=== PATIENT | male | born 1980 | race Caucasian/White ===

== ENCOUNTER 2020-06-09 15:31 | Emergency (ER) | payer OTHER ==
[2020-06-09 15:38] VITALS: RESP 18; TEMP 98.3
[2020-06-09] MEDS ORDERED: LORazepam 2 MG/ML INJ IV STA ×2 (15:38→17:53)
[2020-06-09] MEDS ORDERED: SODIUM CHLORIDE 0.9% 500 ML 500 ML IV STA (15:38)
--- NOTE | 2020-06-09 15:43 | ED ---
General Adult HPI - General Chief complaint: Seizure Stated complaint: seizure Time Seen by Provider: 06/09/20 15:32 Source: patient, EMS, RN notes reviewed Mode of arrival: EMS Limitations: no limitations - History of Present Illness Initial comments: Patient is a pleasant 40-year-old male presenting to the emergency department telling possible seizure. Patient reportedly had abnormal behavior and seizure- like activity that was reported to EMS. EMS found patient to be confused that did improve. Patient was also tachycardic that has also improved. Patient does not recall the situation. Patient states he does have palpitations and mild discomfort in his chest at this time. Patient does frequently drink 10 or so beers per day, patient normally would've started drinking by now however today has not drank any. Patient admits he does feel shaky and states he gets like that when he has not had alcohol in a while. No headache. Patient no longer feels confused. - Related Data Home Medications Medication Instructions Recorded Confirmed No Known Home Medications 06/09/20 06/09/20 Allergies Allergy/AdvReac Type Severity Reaction Status Date / Time No Known Allergies Allergy Verified 06/09/20 17:01 Review of Systems ROS Statement: Those systems with pertinent positive or pertinent negative responses have been documented in the HPI. ROS Other: All systems not noted in ROS Statement are negative. Constitutional: Denies: fever Eyes: Denies: eye pain ENT: Denies: ear pain Respiratory: Denies: cough Cardiovascular: Reports: as per HPI, chest pain, palpitations Endocrine: Denies: fatigue Gastrointestinal: Denies: abdominal pain Genitourinary: Denies: dysuria Musculoskeletal: Denies: back pain Skin: Denies: rash Neurological: Reports: as per HPI. Denies: headache Past Medical History Past Medical History: No Reported History History of Any Multi-Drug Resistant Organisms: None Reported Additional Past Surgical History / Comment(s): vasectomy Past Psychological History: No Psychological Hx Reported Smoking Status: Current every day smoker Past Alcohol Use History: Daily Past Drug Use History: None Reported General Exam Limitations: no limitations General appearance: alert, in no apparent distress Head exam: Present: normocephalic Eye exam: Present: normal appearance, PERRL, EOMI ENT exam: Present: other (Tongue abrasion) Neck exam: Present: normal inspection. Absent: tenderness Respiratory exam: Present: normal lung sounds bilaterally Cardiovascular Exam: Present: tachycardia, normal heart sounds Expanded Peripheral pulses: 2+: Radial (R), Radial (L), Posterior Tibialis (R), Posterior Tibialis (L) GI/Abdominal exam: Present: soft. Absent: tenderness Extremities exam: Present: normal inspection. Absent: pedal edema, calf tenderness Back exam: Present: normal inspection Neurological exam: Present: alert, oriented X3, CN II-XII intact Expanded Neurological exam: Present: protecting the airway Patient oriented to: Present: person, place, time Speech: Present: fluid speech Motor strength exam: RUE: 5, LUE: 5, RLE: 5, LLE: 5 Eye Response: (4) open spontaneously Motor Response: (6) obeys commands Verbal Response: (5) oriented Psychiatric exam: Present: normal affect, normal mood Skin exam: Present: normal color Course Vital Signs 06/09/20 06/09/20 15:36 17:00 Temperature 98.3 F 98.3 F Pulse Rate 121 H 106 H Respiratory 18 18 Rate Blood Pressure 108/59 118/72 O2 Sat by Pulse 97 97 Oximetry EKG Findings - EKG Comments: EKG Findings:: Sinus tachycardia 105. MN 182. QRS 82. QT 344. QTC 454. Normal axis. Q waves in leads V1 and V2. No acute ST change. Medical Decision Making - Medical Decision Making Patient reevaluated and resting comfortably in bed. Patient still with mild tremor. Patient updated on results. Patient also updated on suspicion regarding alcohol withdrawal seizure. Patient agrees. Patient offered admissio n however refuses. Patient advised to decrease alcohol intake. Patient will be given referral forms. Patient states he does have a primary care physician out of town. - Lab Data Result diagrams: 06/09/20 15:44 06/09/20 15:44 Lab Results 06/09/20 06/09/20 06/09/20 Range/Units 15:44 15:44 15:44 WBC (3.8-10.6) k/uL RBC (4.30-5.90) m/uL Hgb (13.0-17.5) gm/dL Hct (39.0-53.0) % MCV (80.0-100.0) fL MCH (25.0-35.0) pg MCHC (31.0-37.0) g/dL RDW (11.5-15.5) % Plt Count (150-450) k/uL MPV Neutrophils % % Lymphocytes % % Monocytes % % Eosinophils % % Basophils % % Neutrophils # (1.3-7.7) k/uL Lymphocytes # (1.0-4.8) k/uL Monocytes # (0-1.0) k/uL Eosinophils # (0-0.7) k/uL Basophils # (0-0.2) k/uL D-Dimer 10.55 H (<0.60) mg/L FEU Sodium 138 (137-145) mmol/L Potassium 3.7 (3.5-5.1) mmol/L Chloride 100 (98-107) mmol/L Carbon Dioxide 24 (22-30) mmol/L Anion Gap 14 mmol/L BUN 8 L (9-20) mg/dL Creatinine 0.63 L (0.66-1.25) mg/dL Est GFR (CKD-EPI)AfAm >90 (>60 ml/min/1.73 sqM) Est GFR (CKD-EPI)NonAf >90 (>60 ml/min/1.73 sqM) Glucose 123 H (74-99) mg/dL POC Glucose (mg/dL) (75-99) mg/dL POC Glu [employer] Technician ID Calcium 9.5 (8.4-10.2) mg/dL Total Bilirubin 1.0 (0.2-1.3) mg/dL AST 70 H (17-59) U/L ALT 34 (4-49) U/L Alkaline Phosphatase 98 (38-126) U/L Troponin I <0.012 (0.000-0.034) ng/mL Total Protein 7.6 (6.3-8.2) g/dL Albumin 4.7 (3.5-5.0) g/dL Serum Alcohol <10 mg/dL Coronavirus (PCR) (Not Detectd) 06/09/20 06/09/20 06/09/20 Range/Units 15:44 16:02 16:03 WBC 9.0 (3.8-10.6) k/uL RBC 4.56 (4.30-5.90) m/uL Hgb 15.4 (13.0-17.5) gm/dL Hct 44.7 (39.0-53.0) % MCV 97.9 (80.0-100.0) fL MCH 33.7 (25.0-35.0) pg MCHC 34.4 (31.0-37.0) g/dL RDW 12.8 (11.5-15.5) % Plt Count 141 L (150-450) k/uL MPV 6.8 Neutrophils % 83 % Lymphocytes % 9 % Monocytes % 5 % Eosinophils % 1 % Basophils % 0 % Neutrophils # 7.5 (1.3-7.7) k/uL Lymphocytes # 0.8 L (1.0-4.8) k/uL Monocytes # 0.5 (0-1.0) k/uL Eosinophils # 0.1 (0-0.7) k/uL Basophils # 0.0 (0-0.2) k/uL D-Dimer (<0.60) mg/L FEU Sodium (137-145) mmol/L Potassium (3.5-5.1) mmol/L Chloride (98-107) mmol/L Carbon Dioxide (22-30) mmol/L Anion Gap mmol/L BUN (9-20) mg/dL Creatinine (0.66-1.25) mg/dL Est GFR (CKD-EPI)AfAm (>60 ml/min/1.73 sqM) Est GFR (CKD-EPI)NonAf (>60 ml/min/1.73 sqM) Glucose (74-99) mg/dL POC Glucose (mg/dL) 110 H (75-99) mg/dL POC Glu [employer] Technician ID Cassandra Live Calcium (8.4-10.2) mg/dL Total Bilirubin (0.2-1.3) mg/dL AST (17-59) U/L ALT (4-49) U/L Alkaline Phosphatase (38-126) U/L Troponin I (0.000-0.034) ng/mL Total Protein (6.3-8.2) g/dL Albumin (3.5-5.0) g/dL Serum Alcohol mg/dL Coronavirus (PCR) Not Detected (Not Detectd) - Radiology Data Radiology results: report reviewed (CT chest negative for PE. Aorta without dissection or aneurysmal changes. Computed tomography scan of the brain shows no acute hemorrhage or shift. Possible white matter demyelinization.) Disposition Clinical Impression: Alcohol withdrawal seizure Disposition: HOME SELF-CARE Condition: Stable Instructions (If sedation given, give patient instructions): New-Onset Seizure in Adults (ED), Abuse of Alcohol (ED) Additional Instructions: Decrease alcohol use. Follow-up with alcohol counseling including alcohol anonymous or [place] or others, list provided. Return for recurrent s eizures, weakness or confusion, worsening symptoms or other concerns. Please do follow-up with primary care physician in the next day or 2 for recheck and have them review computed tomography scan results. You may need further evaluation including MRI. Is patient prescribed a controlled substance at d/c from ED?: No Referrals: Nonstaff,Physician [Primary Care Provider] - 1-2 days Time of Disposition: 17:53
[2020-06-09 15:54] LABS: Basophils % (A) 0 %; Eosinophils # (A) 0.1 k/uL (0-0.7); Eosinophils % (A) 1 %; HCT 44.7 % (39.0-53.0); HGB 15.4 gm/dL (13.0-17.5); Lymphocytes # (A) 0.8 k/uL (1.0-4.8); Lymphocytes % (A) 9 %; MCH 33.7 pg (25.0-35.0); MCHC 34.4 g/dL (31.0-37.0); MCV 97.9 fL (80.0-100.0); Mean Platelet Volume 6.8; Monocytes # (A) 0.5 k/uL (0-1.0); Monocytes % (A) 5 %; Neutrophils # (A) 7.5 k/uL (1.3-7.7); Neutrophils % (A) 83 %; Platelet Count 141 k/uL (150-450); RBC 4.56 m/uL (4.30-5.90); RDW 12.8 % (11.5-15.5)
[2020-06-09 16:04] LABS: Glucose,Whole Blood 110 mg/dL (75-99)
[2020-06-09 16:09] LABS: ALT 34 U/L (4-49); AST 70 U/L (17-59); African American GFR (CKD) >90 (>60 ml/min/1.73 sqM); Albumin 4.7 g/dL (3.5-5.0); Alcohol <10 mg/dL; Alkaline Phosphatase 98 U/L (38-126); Anion Gap 14 mmol/L; Blood Urea Nitrogen 8 mg/dL (9-20); Calcium 9.5 mg/dL (8.4-10.2); Carbon Dioxide 24 mmol/L (22-30); Chloride 100 mmol/L (98-107); Glucose 123 mg/dL (74-99); Non-African American GFR(CKD) >90 (>60 ml/min/1.73 sqM); Potassium 3.7 mmol/L (3.5-5.1); Sodium 138 mmol/L (137-145); Total Protein 7.6 g/dL (6.3-8.2)
--- NOTE | 2020-06-09 16:19 | CT ---
EXAMINATION TYPE: CT brain wo con DATE OF EXAM: 06/09/2020 COMPARISON: HISTORY: seizure CT DLP: 1040.4 mGycm. Automated Exposure Control for Dose Reduction was Utilized. TECHNIQUE: CT scan of the head is performed without contrast. FINDINGS: There is no acute intracranial hemorrhage, mass effect, or midline shift identified. The ventricles and sulci are within normal limits in size. The globes are intact and the visualized sin uses are showing some mucoperiosteal thickening in the right maxillary sinus, ethmoid air cells, sphe noid sinus. Question some periventricular white matter low-attenuation. IMPRESSION: No acute intracranial hemorrhage, mass effect, or midline shift is seen. Possible white matter demyelination, consider brain MRI. Sinus disease.
--- NOTE | 2020-06-09 17:33 | CT ---
EXAMINATION TYPE: CT angio chest DATE OF EXAM: 06/09/2020 5:08 PM COMPARISON: None. HISTORY: Chest and upper back pain. CT DLP: 290.9 mGycm Automated exposure control for dose reduction was used. CONTRAST: CTA scan of the thorax is performed with IV Contrast, patient injected with 100 mL of Isovue 370, pul monary embolism protocol. MIP images are created and reviewed. FINDINGS: LUNGS: Mild to moderate underlying emphysematous change. No suspicious focal groundglass opacity or c onsolidation. No pleural effusion or pneumothorax seen bilaterally. No concerning nodules or masses. MEDIASTINUM: There is satisfactory enhancement of the pulmonary artery and its branches, there is no CT evidence for pulmonary embolism. There are no greater than 1 cm hilar or mediastinal lymph nodes. No cardiomegaly or pericardial effusion is seen. Satisfactory enhancement of the aorta without ane urysm or dissection. OTHER: Slight scoliotic curvature upper thoracic spine. IMPRESSION: No CT evidence for acute pulmonary embolism. Mild to moderate emphysematous change withou t acute pulmonary process.
[2020-06-09 17:38] VITALS: BP 118/72; PULSE 106
[2020-06-09 18:17] LABS: INR 0.9 (<1.2); Partial Thromboplastin Time 22.1 sec (22.0-30.0); Prothrombin Time 9.8 sec (9.0-12.0)
== END 2020-06-09 18:16 | disposition home or self-care (01) ==
LOC: EC 15:31
DX: R56.9 Unspecified convulsions (principal); F17.200 Nicotine dependence, unspecified, uncomplicated; F10.239 Alcohol dependence with withdrawal, unspecified
CPT/HCPCS: 93005; 85379; 80053; 84484; 85025; 85610; 85730; 87635; 70450; 71275; 99284; 96374; 96376; G0480; J2060; Q9967; 80320